=== PATIENT | female | born 2000 | race African-American/Black ===

== ENCOUNTER → 2022-08-16 | Emergency (ER) | payer MEDICAID ==
[~2022-08-16] VITALS: Ht 162.6 cm; Wt 71.7 kg
[~2022-08-16] MED LIST: GUAI5SYR PO; NAPR-686 PO; OSEL75CA PO; OSELTAMIVIR PHOSPHATE 75 MG CAPSULE ONE; OSELTAMIVIR PHOSPHATE 75 MG CAPSULE PO ONE
[2022-08-16 21:20] VITALS: BP_SYST 116
[2022-08-17 00:17] VITALS: BP_SYST 117
== END | disposition home or self-care (01) ==
LOC: SED 20:11
DX: U07.1 COVID-19 (principal); R05.9 Cough, unspecified; R09.81 Nasal congestion; Z79.899 Other long term (current) drug therapy
CPT/HCPCS: 36415; 71045; 99284; 87804 ×2; 87426; G9035